=== PATIENT | male | born 1965 | race Caucasian/White ===

== ENCOUNTER → 2016-12-27 | Outpatient (CLI) | payer SELFPAY | LOC: M OUTALCOH 08:01 | PROVIDERS: ATTEND Psychiatry & Neurology Psychiatry | DX: F10.20 Alcohol dependence, uncomplicated (principal) ==

== ENCOUNTER 2017-01-17 08:00 | Outpatient (RCR) | payer SELFPAY | END 2017-01-20 | LOC: M OUTALCOH 08:00 | PROVIDERS: ATTEND Psychiatry & Neurology Psychiatry | DX: F10.20 Alcohol dependence, uncomplicated (principal); F17.210 Nicotine dependence, cigarettes, uncomplicated ==

== ENCOUNTER → 2017-03-22 | Outpatient (RCR) | payer SELFPAY | LOC: M OUTALCOH 02-22 15:37 | PROVIDERS: ATTEND Psychiatry & Neurology Psychiatry | DX: F10.20 Alcohol dependence, uncomplicated (principal); Z72.0 Tobacco use ==

== ENCOUNTER 2017-03-29 16:00 | Outpatient (RCR) | payer SELFPAY | END 2017-04-22 | LOC: M OUTALCOH 04-05 15:00 | DX: F10.20 Alcohol dependence, uncomplicated (principal); Z72.0 Tobacco use ==

== ENCOUNTER 2017-05-03 15:44 | Outpatient (RCR) | payer SELFPAY | END 2017-05-23 | LOC: M OUTALCOH 15:44 | DX: F10.20 Alcohol dependence, uncomplicated (principal); Z72.0 Tobacco use ==

== ENCOUNTER → 2018-08-14 | Outpatient (REF) | LOC: M LAB 15:03 | PROVIDERS: ATTEND Nurse Practitioner Adult Health | DX: Z02.89 Encounter for other administrative examinations (principal) ==

== ENCOUNTER 2019-12-10 09:57 | Day surgery (SDC) | payer OTHER ==
[~2019-12-10] VITALS: Ht 170.2 cm; Wt 90.3 kg
[2019-12-10] MEDS ORDERED: ASPI81TA86 PO (10:11)
[2019-12-10] MEDS ORDERED: CALC500C16 PO (10:12)
[2019-12-10] MEDS ORDERED: LOSA50TA88 PO (10:12)
[2019-12-10] MEDS ORDERED: METO50TA7 PO (10:13)
[2019-12-10] MEDS ORDERED: MULTCAP PO (10:14)
[2019-12-10] MEDS ORDERED: ROSU40TA4 PO (10:14)
[2019-12-10] MEDS ORDERED: NS 1,000 ML IV ONE (10:30)
[2019-12-10] MEDS ORDERED: propofoL 200 MG/20 ML VIAL As Ordered ONE ×2 (10:39→10:52)
[2019-12-10 11:15] VITALS: BP 119/73
--- NOTE | 2019-12-31 11:29 | ROOR ---
Patient Name: Beni Hand Procedure Date: 12/10/2019 9:56 AM Date of : 1965 Age: 54 Room: 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 Requesting Provider: Medicines: Monitored Anesthesia Care Complications: No immediate complications. Procedure: Pre-Anesthesia Assessment: - The heart rate, respiratory rate, oxygen saturations, blood pressure, adequacy of pulmonary ventilation, and response to care were monitored throughout the procedure. The Colonoscope was introduced through the anus and advanced to the cecum, identified by appendiceal orifice and ileocecal valve. The colonoscopy was performed without difficulty. The patient tolerated the procedure well. The quality of the bowel preparation was excellent. Findings: The perianal and digital rectal examinations were normal. Non-bleeding internal hemorrhoids were found during retroflexion. The hemorrhoids were small and Grade I (internal hemorrhoids that do not prolapse). A diminutive polyp was found in the ascending colon. The polyp was sessile. The polyp was removed with a cold biopsy forceps. Resection and retrieval were complete. The exam was otherwise without abnormality on direct and retroflexion views. Impression: - Non-bleeding internal hemorrhoids. - One diminutive polyp in the ascending colon, removed with a cold biopsy forceps. Resected and retrieved. - The examination was otherwise normal on direct and retroflexion views. - The exam was otherwise normal to the cecum. Recommendation: - Patient has a contact number available for emergencies. The signs and symptoms of potential delayed complications were discussed with the patient. Return to normal activities tomorrow. Written discharge instructions were provided to the patient. - High fiber diet. - Discharge patient to home. - Continue present medications. - Await pathology results. - Telephone GI clinic for pathology results in 1 week. - Repeat colonoscopy in 5 years for surveillance based on pathology results. - Return to referring physician. - The findings and recommendations were discussed with the patient. Bony Crabtree MD Bony Crabtree MD 12/10/2019 10:53:30 AM Number of Addenda: 0 Note Initiated On: 12/10/2019 9:56 AM Estimated Blood Loss: Estimated blood loss: none.
== END 2019-12-10 12:02 | disposition home or self-care (01) ==
LOC: M OPP 09:57
PROVIDERS: ATTEND Internal Medicine Gastroenterology
DX: Z12.11 Encounter for screening for malignant neoplasm of colon (principal); K64.0 First degree hemorrhoids; D12.2 Benign neoplasm of ascending colon; Z79.82 Long term (current) use of aspirin; Z79.899 Other long term (current) drug therapy; Z87.891 Personal history of nicotine dependence